=== PATIENT | male | born 1995 | race Caucasian/White ===

== ENCOUNTER 2023-04-05 00:03 | Emergency (ER) | payer SELFPAY ==
[2023-04-05] MEDS ORDERED: diphenhydrAMINE 50 MG/ML SDV IVPUSH ONE ×2 (00:09→01:03)
[2023-04-05] MEDS ORDERED: EPINEPHrine 1 MG/ML SDV SUBCUT ONE (00:09)
[2023-04-05] MEDS ORDERED: Dexamethasone 4 MG/ML SDV IVPUSH ONE (00:09)
[2023-04-05] MEDS: Sodium Chloride 0.9% 10 ML Syringe FLUSH SCH ×2 (00:16→00:23)
[2023-04-05] MEDS ORDERED: EPINEPHrine 1:10,000 1 MG/10 ML Syringe IVPUSH ONE (00:18)
[2023-04-05 00:41] LABS: BASOPHILS PERCENT AUTO 0.3 % (0.0-1.0); EOSINOPHILS PERCENT AUTO 0.6 % (1.0-3.0); HEMATOCRIT 47.1 % (40.0-54.0); HEMOGLOBIN 16.8 g/dL (14.0-18.0); LYMPHOCYTES PERCENT AUTO 11.3 % (20.5-50.1); MEAN CORPUSCULAR HEMOGLOBIN 30.1 pg (27.0-34.0); MEAN CORPUSCULAR HGB CONC 35.7 g/dL (33.0-35.0); MEAN CORPUSCULAR VOLUME 84.4 fL (80-100); MONOCYTES PERCENT AUTO 8.6 % (2-8); NEUTROPHILS PERCENT AUTO 79.2 % (42.2-75.2); PLATELET COUNT,PLT 278 10^3/uL (150-450); RED BLOOD CELL COUNT 5.58 10^6/uL (4.6-6.2)
[2023-04-05 00:43] LABS: A/G RATIO 1.4; ALBUMIN 4.7 g/dL (3.4-5.0); BILIRUBIN TOTAL 0.7 mg/dL (0.2-1.0); BUN/CREATININE RATIO 16.7 (No establ ref range); CALCIUM 9.3 mg/dL (8.5-10.1); CREATININE 1.08 mg/dL (0.70-1.30); EST CRCL DRUG DOSING (CG) 110.91 mL/min; PROTEIN TOTAL,TP 8.1 g/dL (6.4-8.2)
[2023-04-05] MEDS ORDERED: Sodium Chloride 0.9% 1,000 ML IV ONE (00:50)
== END 2023-04-05 01:39 | disposition home or self-care (01) ==
LOC: DL.ED 00:03
DX: T78.40XA Allergy, unspecified, initial encounter (principal); F17.210 Nicotine dependence, cigarettes, uncomplicated
CPT/HCPCS: 36415; 80053; 85025; 96372; 96374; 96376; 99283; J0171; J1100; J1200; J7030; J3490